=== PATIENT | female | born 1990 | race Caucasian/White ===

== ENCOUNTER 2020-07-23 14:08 | Emergency (ER) | payer OTHER ==
[2020-07-23] MEDS ORDERED: Ibuprofen 600 MG Tab PO ONE (14:09)
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
--- NOTE | 2020-07-23 18:01 | CR ---
DATE OF SERVICE: 07/23/2020 CLINICAL DATA: Right wrist pain Right wrist: No acute fracture or dislocation. No lytic or blastic bone lesions MTDD
== END 2020-07-23 15:00 | disposition home or self-care (01) ==
LOC: LB.ED 14:08
DX: M25.531 Pain in right wrist (principal)
CPT/HCPCS: 73100-RT; 99282; 99283; A9270-GY